=== PATIENT | female | born 1985 | race Caucasian/White ===

== ENCOUNTER 2023-11-30 04:11 | Inpatient (IN) | payer OTHER ==
[2023-11-24 13:22] VITALS: BMI 36.1
[2023-11-30] MEDS ORDERED: FENTANYL CITRATE/PF 50 MCG/ML VIAL ONE ×6 (07:41→11:50)
[2023-11-30] MEDS ORDERED: ONDANSETRON 4 MG/2 ML VIAL ONE (07:41)
[2023-11-30] MEDS ORDERED: LIDOCAINE HCL/PF 2% SDV 5ML VIAL ONE (07:41)
[2023-11-30] MEDS ORDERED: KETOROLAC TROMETHAMINE 30 MG/1 ML VIAL ONE (07:41)
[2023-11-30] MEDS ORDERED: DEXAMETHASONE SOD PHOSPHATE 4 MG/1 ML VIAL ONE (07:41)
[2023-11-30] MEDS ORDERED: MIDAZOLAM HCL 2 MG/2 ML SINGLE DOSE VIAL ONE (07:42)
[2023-11-30] MEDS ORDERED: ROCURONIUM BROMIDE 50 MG/5 ML SYRINGE ONE ×2 (07:42→09:07)
[2023-11-30] MEDS ORDERED: SUCCINYLCHOLINE CHLORIDE 200 MG/10 ML SYRINGE ONE (07:42)
[2023-11-30] MEDS ORDERED: PROPOFOL 80 ML ONE (07:42)
[2023-11-30] MEDS ORDERED: BUPIVACAINE HCL/PF 0.25% (2.5MG/ML) 10 ML VIAL ONE (07:46)
[2023-11-30] MEDS: ceFAZolin SODIUM 1 GM VIAL IVPB ONE ×2 (07:48→08:25)
[2023-11-30] MEDS ORDERED: ACETAMINOPHEN INJECTION 100 ML IVPB ONE (09:06)
[2023-11-30] MEDS ORDERED: oxyCODONE HCL 5 MG TABLET PO PRN ×2 (10:55)
[2023-11-30] MEDS ORDERED: ONDANSETRON 4 MG/2 ML VIAL IVPUSH PRN (11:01)
[2023-11-30] MEDS: LACTATED RINGERS SOLUTION 1,000 ML IV SCH (11:15)
[2023-11-30] MEDS: ENOXAPARIN NA (PORCINE) 40 MG/0.4 ML DISP.SYRIN SQ SCH (12:46)
[2023-11-30] MEDS ORDERED: NALOXONE HCL 0.4 MG/ML VIAL IVPUSH PRN (13:35)
[2023-11-30] MEDS: ACETAMINOPHEN 1000 MG/100 ML BAG IVPB PRN (20:22)
[2023-11-30] MEDS: IBUPROFEN 800 MG/8 ML IJ IVPB SCH (22:24)
[2023-12-01 08:36] LABS: HEMATOCRIT 30.1 % (32.4-45.2); HEMOGLOBIN 9.8 GM/dL (10.7-15.3); MCH 26.2 pg (25.7-33.7); MCHC 32.5 g/dl (32.0-36.0); MEAN CELL VOLUME 80.8 fl (80-96); MEAN PLT VOLUME 8.4 fl (7.5-11.1); PLATELET COUNT 246 10^3/uL (134-434); RBC 3.73 M/mm3 (3.60-5.2); RDW 14.3 % (11.6-15.6); WHITE BLOOD COUNT 12.3 K/mm3 (4.0-10.0)
[2023-12-01] MEDS ORDERED: IBUPROFEN 600 MG TABLET (FP) PO PRN (09:17)
[2023-12-01] MEDS: FERROUS SO4 325 MG TABLET (FP) PO SCH (10:37)
[2023-12-01] MEDS: IBUPROFEN 600 MG TABLET (FP) PO SCH (12:24)
[2023-12-01] MEDS: ACETAMINOPHEN 500 MG TABLET (FP) PO PRN (20:47)
[2023-12-01] MEDS: DOCUSATE SODIUM 100 MG CAPSULE (FP) PO PRN (20:47)
[2023-12-02 06:06] VITALS: PULSE 92
[2023-12-02] MEDS ORDERED: DOCUSATE SODIUM 100 MG CAPSULE (FP) PO PRN (09:39)
[2023-12-02] MEDS ORDERED: BISACODYL 10 MG SUPP.RECT PR ONE (09:39)
[2023-12-02 12:13] VITALS: BP 108/75; RESP 16; TEMP 97.3
== END 2023-12-02 11:50 | disposition home or self-care (01) | DRG 743 ==
LOC: J2C 04:11 → J3W 13:02
PROVIDERS: ADMIT Obstetrics & Gynecology; ATTEND Obstetrics & Gynecology
PROC: 0UB90ZZ Excision of Uterus, Open Approach (ICD-10-PCS; principal; 2023-11-30 08:00)
DX: D25.9 Leiomyoma of uterus, unspecified (principal); N92.0 Excessive and frequent menstruation with regular cycle; J45.909 Unspecified asthma, uncomplicated
CPT/HCPCS: 36415; 81025; 85027; 86850; 86900; 86901; 88305-TC; 94760; J0131